=== PATIENT | female | born 1940 | race Caucasian/White ===

== ENCOUNTER → 2018-06-07 | Outpatient (CLI) | payer MEDICARE | END | disposition home or self-care (01) | LOC: OIH 12:44 | PROVIDERS: ATTEND Nurse Practitioner Adult Health | DX: R07.9 Chest pain, unspecified (principal) | CPT/HCPCS: 71046 ==

== ENCOUNTER → 2018-06-13 | Outpatient (CLI) | payer MEDICARE | END | disposition home or self-care (01) | LOC: RAH 10:19 | PROVIDERS: ATTEND Nurse Practitioner Adult Health | DX: M47.812 Spondylosis without myelopathy or radiculopathy, cervical region (principal); I70.90 Unspecified atherosclerosis; R13.10 Dysphagia, unspecified; R59.9 Enlarged lymph nodes, unspecified | CPT/HCPCS: 70490 ==